=== PATIENT | male | born 1990 | race Caucasian/White ===

== ENCOUNTER 2021-01-29 14:03 | Emergency (ER) | payer OTHER, MEDICAID, SELFPAY ==
[2021-01-29 14:06] VITALS: BP 143/89; PULSE 88; RESP 20; TEMP 36.9; O2SAT 97
--- NOTE | 2021-01-29 14:10 | DI.RAD.S_ITS ---
PROCEDURE: XR FEMUR RT MIN 2V INDICATIONS: pain, concern r/t previous surg TECHNIQUE: AP and lateral views of the femur were acquired. COMPARISON: None. FINDINGS: Bones: Status post open reduction internal fixation of the distal right femoral diaphysis with lateral plate and screw fixation. No evidence for hardware loosening or failure. No acute fracture seen. There is flattening and deformation of the right femoral head with subchondral sclerosis and moderate subchondral cystic changes. There is reciprocal degenerative changes of the right acetabulum. Morphology of the acetabulum appears abnormal and may be related to a congenital or posttraumatic process. Moderate degenerative changes of the right hip joint. Soft tissues: No suspicious soft tissue calcifications or masses. IMPRESSION: 1. Right femur without acute fracture or dislocation. 2. Advanced degenerative changes of the right hip joint with dysplastic appearance of the femoral head. Findings may represent sequela of remote trauma or congenital etiology. 3. Status post ORIF of the distal right femur without evidence for hardware complication. Dictated by: Jacob Persaud M.D. on 01/29/2021 at 14:31 Approved by: Jacob Persaud M.D. on 01/29/2021 at 14:35
--- NOTE | 2021-01-29 15:22 | ED.LOWEXIN ---
HPI - Extremity Injury (Lower) General Chief Complaint: Extremity Injury, Lower Stated Complaint: pain inleg feom kneecap down to foot Time Seen by Provider: 01/29/21 14:49 Source: patient Mode of arrival: Ambulatory History of Present Illness HPI Narrative: 30-year-old male daily smoker with history of prior orthopedic problems including a complicated surgical repair of his right femur presents with significant other and a chief complaint of 2 weeks of right lower back and leg pain. He states that he was walking in the yd mowing the lawn when he stepped awkwardly and felt a sudden and severe pain that radiated down his leg. He denies any fall or direct trauma. He denies any use of blood thinners. He has had no fever or chills. He denies loss of bowel or bladder control. He has no lower extremity weakness, numbness or tingling. His pain is worse when he moves and improves with rest. Related Data Previous Rx's Medication Instructions Recorded cyclobenzaprine 10 mg tablet 10 mg PO TID PRN #14 tab 01/29/21 hydrocodone 5 mg-acetaminophen 325 1 tab PO Q4-6H PRN #10 tab 01/29/21 mg tablet methylprednisolone 4 mg tablets in See Rx Instructions .ROUTE 01/29/21 a dose pack (Medrol (Te)) .COMPLEX #21 ea Review of Systems Review of Systems Narrative: GENERAL: Denies chills, fatigue, malaise, fever, sweats. HEENT: Denies sinus pain, ear pain, sore throat, difficulty swallowing, dizziness. RESPIRATORY: Denies dyspnea, cough, wheezing, hemoptysis, sputum. CARDIOVASCULAR: Denies chest pain, palpitations, orthopnea, edema, GASTROINTESTINAL: Denies nausea, vomiting, abdominal pain, diarrhea, constipation, melena. : Denies dysuria, frequency, incontinence, hematuria, urinary retention. MUSCULOSKELETAL: See HPI SKIN: Denies rash, skin lesions, or other NEUROLOGIC: Denies weakness, headache, numbness, change in speech, confusion, seizures, incoordination. PSYCHIATRIC: No concerning psychosocial issues. 12 point review of systems is negative except for those stated above Patient History Social History Smoking Status: Current every day smoker Smoking Status: Current every day smoker Exam Narrative Exam Narrative: GENERAL: [30] year old patient appears stated age. Well-developed patient, in mild distress. HEAD: Atraumatic. Normocephalic. EYES: Pupils equal round and reactive. Extraocular motions intact. No scleral icterus. No injection or drainage. ENT: Nose without bleeding, purulent drainage. Throat without erythema, tonsillar hypertrophy or exudate. Airway patent. NECK: Trachea midline. Non tender CARDIOVASCULAR: Regular rate and rhythm without murmurs, gallops, or rubs. RESPIRATORY: Clear to auscultation. Breath sounds equal bilaterally. No wheezes, rales, or rhonchi. GASTROINTESTINAL: Abdomen soft, non-tender, nondistended. EXTREMITIES: No edema or joint tenderness. BACK: cloth washer back tender but free of any obvious external abnormalities. Patient exam notes decreased range of motion and muscle spasm, but no CVA tenderness, or vertebral point tenderness. There are no symptoms of cauda equina such as saddle anesthesia, and decreased reflexes, decreased sensation or strength. NEURO: AOx3. SKIN: No rash or erythema of visible areas Initial Vital Signs Initial Vital Signs: Vital Signs Temperature 98.5 F 01/29/21 14:06 Pulse Rate 88 01/29/21 14:06 Respiratory Rate 20 01/29/21 14:06 Blood Pressure 143/89 H 01/29/21 14:06 Pulse Oximetry 97 01/29/21 14:06 Course Orders Ordered: ED Orders 01/29/21 14:10 XR femur RT min 2V Stat Vital Signs Vital signs: Vital Signs - 8 hr 01/29/21 14:06 Temperature 98.5 F Pulse Rate 88 Respiratory Rate 20 Blood Pressure 143/89 H Pulse Oximetry 97 MDM - Extremity Injury (Lower) Imaging Data Extremity x-ray #1: Radiologist's Impression: Chart Viewer Diagnostics Subcategory All Activity ??:?? All Time ??:?? All Subcategories Filter Laboratory Imaging Microbiology Pathology Blood Bank Tests Cardiovascular Other Specialty DATE TYPE STATUS REF RANGE/AUTHOR Hx Today 14:10 Femur X-Ray Signed Jacob Persaud Carl L 30, M?1990 MRN#? [id number] [facility],?Main ED??3A?? 90.718kg ? Extremity Injury, Lower Acc#? [id number] Resus Status Not Ordered No Hx Avail Special Indicators No Data to Display Home Meds Confirmed Prescription Monitoring Program Total 30 MME/Day Pending Discharge MEDICATIONS (INSTRUCTIONS) LAST TAKEN Active cyclobenzaprine 10 mgPOTIDPRN#14 tab hydrocodone-acetaminophen 1 tabPOQ4-6HPRN#10 tab 30 MME/Day methylprednisolone [Medrol (Te)] See Rx Instructions.ROUTE.COMPLEX#21 ea Allergies No Data to Display Problems ? ONSET Lumbar disc herniation with radiculopathy Vital Signs Today 14:06 BP 143/89?H Pulse 88? Resp 20? Temp 98.5 F? O2 Sat 97? Delivery Room Air? Diagnostics Reports Dandre Johnson??30??M??1990 ? Allergy/Adv: Not Recorded Close Femur X-Ray (Signed) Jacob Persaud - 01/29/21 Launch?[address] [address] XRay Report Signed Patient: Dandre Johnson MR#: [id number] : 1990 Acct:[id number] Age/Sex: 30 / M Date of Service: 01/29/21 Loc: ED Accession Number: [id number] ?? Procedure: XR femur RT min 2V Ordering Provider: Shea Saleh D.O. PROCEDURE:? XR FEMUR RT MIN 2V ? INDICATIONS:? pain, concern r/t previous surg ? TECHNIQUE:? AP and lateral views of the femur were acquired.? ? COMPARISON:? None. ? FINDINGS:? ? Bones:? Status post open reduction internal fixation of the distal right femoral diaphysis with lateral plate and screw fixation.? No evidence for hardware loosening or failure.? No acute fracture seen.? There is flattening and deformation of the right femoral head with subchondral sclerosis and moderate subchondral cystic changes.? There is reciprocal degenerative changes of the right acetabulum.? Morphology of the acetabulum appears abnormal and may be related to a congenital or posttraumatic process.? Moderate degenerative changes of the right hip joint. ? Soft tissues:? No suspicious soft tissue calcifications or masses.? ? IMPRESSION:? ? 1. Right femur without acute fracture or dislocation. ? 2. Advanced degenerative changes of the right hip joint with dysplastic appearance of the femoral head.? Findings may represent sequela of remote trauma or congenital etiology.? ? 3. Status post ORIF of the distal right femur without evidence for hardware complication. ? ? ? Dictated by: Jacob Persaud M.D. on 01/29/2021 at 14:31 ? ? Approved by: Jacob Persaud M.D. on 01/29/2021 at 14:35 ? MDM Narrative Medical decision making narrative: Multiple etiologies of back pain considered including; Epidural abscess, cauda equina, mass occupying lesion, and other considered however no red flag complaints or findings consistent with neurosurgical emergency are present. Patient has a very reassuring exam most consistent with a lumbar radiculopathy. Return precautions discussed and questions answered to his apparent satisfaction Discharge Plan Departure Patient Disposition: Home Clinical Impression: Lumbar disc herniation with radiculopathy Instructions: DI for Lumbar Radiculopathy Activity Restrictions/Additional Instructions: *You have been diagnosed with [back pain with right-sided radiculopathy *What to do: *Please continue to take your regular medications as directed. [ x] New medication prescriptions sent to your pharmacy: [[facility]] [ ] New medication written as a paper prescription [ ] No new medications given *Please follow up with your primary care provider in 2-3 days, call for an appointment. Let them know you were seen in the Emergency Department and that we ask that you be seen in follow up. We will electronically transmit a record of today's note if your PCP is in our system *If you do not have a primary care provider please contact the [facility] Resource line at [phone]. They will ask some questions about your medical history and help get you set up with a doctor in the community. *Return to Emergency Department if you should have any new, worsening or concerning symptoms, such as [fever greater than 101 F, shaking chills, worsening pain, loss of control of bowel or bladder, leg weakness or other bothersome symptoms Prescriptions: New cyclobenzaprine 10 mg tablet 10 mg PO TID PRN (Reason: muscle spasm) Qty: 14 RF: 0 hydrocodone-acetaminophen 5-325 mg tablet 1 tab PO Q4-6H PRN (Reason: pain) Qty: 10 RF: 0 methylprednisolone [Medrol (Te)] 4 mg tablets,dose pack See Rx Instructions .ROUTE .COMPLEX Qty: 21 RF: 0
== END 2021-01-29 15:32 | disposition home or self-care (01) ==
PROVIDERS: Emergency Provider Emergency Medicine
DX: M51.16 Intervertebral disc disorders with radiculopathy, lumbar region (principal)
CPT/HCPCS: 73552; 99283